=== PATIENT | male | born 1995 | race African-American/Black ===

== ENCOUNTER 2019-07-16 20:18 | Emergency (ER) | payer SELFPAY ==
[2019-07-16 20:27] VITALS: BP 102/60
[2019-07-16] MEDS ORDERED: IPRATROPIUM/ALBUTEROL 0.5-2.5 MG/3 ML AMPUL NEB ONE (21:43)
--- NOTE | 2019-07-16 21:45 | ER Document Report ---
ED Medical Screen (RME) - General Chief Complaint: Shortness Of Breath Stated Complaint: WHEEZING,OCCASIONAL CHEST PAIN,CONGESTION Time Seen by Provider: 07/16/19 21:21 Notes: Patient is a 24-year-old male with a history of chronic bronchitis who presents to the emergency department with mild shortness of breath. Patient states that he is always short of breath. He normally has an albuterol inhaler with him, but he has not had an albuterol inhaler since he moved here to [place] about a year ago. States he was taking an [id number] medication to help with his breathing, but states that albuterol works the best. Exam: Diminished breath sounds throughout. Patient will be given a DuoNeb treatment and will be reevaluated. I have greeted and performed a rapid initial assessment of this patient. A comprehensive ED assessment and evaluation of the patient, analysis of test results and completion of medical decision making process will be conducted by an additional ED providers. TRAVEL OUTSIDE OF THE [place] IN LAST 30 DAYS: No - Related Data Allergies/Adverse Reactions: No Known Allergies Allergy (Unverified 07/16/19 21:21) Past Medical History - Social History Chew tobacco use (# tins/day): No Frequency of alcohol use: Occasional Drug Abuse: None Physical Exam - Vital signs Vitals: Temp Pulse Resp BP Pulse Ox 98.2 F 82 20 102/60 96 07/16/19 20:26 07/16/19 20:26 07/16/19 20:26 07/16/19 20:26 07/16/19 20:26 Course - Vital Signs Vital signs: Temp Pulse Resp BP Pulse Ox 98.2 F 82 20 102/60 96 07/16/19 20:26 07/16/19 20:26 07/16/19 20:26 07/16/19 20:26 07/16/19 20:26
--- NOTE | 2019-07-17 06:48 | EKG REPORT ---
SEVERITY:- NORMAL ECG - SINUS RHYTHM : Confirmed by: Masoud Alexandra MD 17-Jul-2019 06:48:13
== END 2019-07-16 22:25 | disposition left against medical advice (07) ==
LOC: ER 20:18
DX: R06.02 Shortness of breath (principal); R06.2 Wheezing
CPT/HCPCS: 93005; 93010; 99281